=== PATIENT | female | born 1965 | race Caucasian/White ===

== ENCOUNTER → 2017-08-05 | Outpatient (CLI) | payer MEDICARE, MEDICAID ==
[~2017-08-05] MED LIST: CATHETER FLUSH 10 ML SYR IV PRN; IOHEXOL 350 MG/ML 100 ML (OMNIPAQUE 350) VIAL IV ONE; NS 100 ML (IVPB) BAG IV ONE
[2017-08-05 08:36] LABS: ANION GAP 12 MMOL/L (5-14); BLOOD UREA NITROGEN 15 MG/DL (7-18); BUN/CREATININE RATIO 20; CALCIUM 9.9 MG/DL (8.5-10.1); CARBON DIOXIDE 29 MMOL/L (21-32); CHLORIDE 104 MMOL/L (98-107); CREATININE SERUM 0.76 MG/DL (0.60-1.30); GFR ESTIMATED > 60; GLUCOSE 89 MG/DL (70-105); POTASSIUM 4.7 MMOL/L (3.6-5.0); SODIUM 145 MMOL/L (135-145)
--- NOTE | 2017-08-05 10:16 | Diagnostic Imaging Report ---
PROCEDURE: CT chest with contrast only. TECHNIQUE: Multiple contiguous axial images were obtained through the chest after administration of intravenous contrast. INDICATION: Acid reflux, hiatal hernia, history of cervical cancer. There are no previous studies available for comparison. The heart size is within normal limits. There are coronary artery calcifications evident. The aorta is not abnormally dilated. There are a few nodes in the aorticopulmonary window and in the pretracheal region. The largest of these nodes measures 0.6 x 1.4 cm and is located in the aorticopulmonary window. These nodes are borderline enlarged but nonspecific in appearance. There are emphysematous changes involving both lungs, and there is considerable scar formation in each lung apex. There is no sign of failure, pneumonia, or a pleural effusion to suggest an acute abnormality. There is no parenchymal lung mass identified either. The thyroid gland is unremarkable. The sections through the upper abdomen show that the liver is of lower density than usually seen. This does suggest fatty metamorphosis. There is no acute abnormality of the visualized upper abdomen. There is no evidence for a hiatal hernia either. There is no obvious breast mass. The bone windows show no sign of a fracture or of a destructive lesion. There are extensive postsurgical changes involving the cervical spine however. IMPRESSION: 1. There are emphysematous changes involving both lungs, and there is considerable scar formation in each lung apex. There is no sign of an acute cardiopulmonary abnormality however. 2. The heart is not enlarged, and there are coronary artery calcifications evident. 3. There is no sign of a hiatal hernia. 4. There are extensive postsurgical changes involving the cervical spine. ADDENDUM: Intravenous contrast was administered to the patient, but the contrast extravasated into the soft tissues. The patient was treated with a cold pack to the area of extravasation for 45 minutes following the exam. She was dismissed in good condition. Dictated by: Dictated on workstation # [id number]
== END ==
LOC: RAD 07:55
PROVIDERS: ATTEND Nurse Practitioner Community Health
DX: J43.9 Emphysema, unspecified (principal)
CPT/HCPCS: 36415; 71260; 80048

== ENCOUNTER → 2019-04-13 | Outpatient (CLI) | payer MEDICARE, MEDICAID ==
--- NOTE | 2019-04-13 17:39 | Diagnostic Imaging Report ---
INDICATION: Routine screening. Comparison is made with prior mammograms from 02/13/2016 and 02/07/2015. 2-D and 3-D bilateral screening mammography was performed with a Computer Aided Detection (CAD) system. FINDINGS: Scattered fibroglandular densities are identified bilaterally. The parenchymal pattern is stable. No mass or malignant-appearing microcalcifications are seen. The axillae are unremarkable. IMPRESSION: No mammographic features suspicious for malignancy are identified. ACR BI-RADS Category 1: Negative. Result letter will be mailed to the patient. Note: At least 10% of breast cancer is not imaged by mammography. Dictated by: Dictated on workstation # [id number]
== END ==
LOC: RAD 07:43
PROVIDERS: ATTEND Nurse Practitioner Community Health
DX: Z12.31 Encounter for screening mammogram for malignant neoplasm of breast (principal)
CPT/HCPCS: 77067